=== PATIENT | female | born 1950 | race Asian ===

== ENCOUNTER 2016-08-13 11:39 | Inpatient (IN) | payer OTHER ==
--- NOTE | 2016-08-13 11:58 | PDOC ---
History of Present Illness - General History Source: Patient Exam Limitations: No Limitations - History of Present Illness Initial Comments: 08/13/16 13:23 The patient is a 66 year old female presenting with her daughter, with a significant past medical history of diabetes, CAD s/p defribillator, diverticulosis and HLD who presents to the emergency department after being sent by her PMD for admission. She states that she has not been feeling well for the past 2 weeks. She reports that she has abdominal pain, back pain, nausea , loss of appetite and chills. She describes her abdominal pain as constant, ranging from mild to moderate, without radiation or modifying factors. She rates it a 8/10 in severity. She describes her back pain as localized on the lower right side, mild in nature, without radiation or modifying factors. She states that her last colonoscopy was last year when she was diagnosed with diverticulosis. She notes that she has been having regular bowel movements but in smaller amounts due to minimal food intake. The patient denies chest pain, shortness of breath, headache and dizziness. Denies fever, vomit, diarrhea and constipation. Denies dysuria, frequency, urgency and hematuria. Allergies: None Past surgical history: , appendectomy, left arm surgery Social history: No alcohol, tobacco or drug use reported PMD - Dr. Sifuentes <Jose Cruz Ladd - Last Filed: 08/13/16 16:59> - General History Source: Patient Exam Limitations: No Limitations <Kelly Larry - Last Filed: 08/14/16 08:57> - General Chief Complaint: Pain Stated Complaint: PAIN, (PCP SENT FOR ADMIN) Time Seen by Provider: 08/13/16 11:57 Past History <Jose Cruz Ladd - Last Filed: 08/13/16 16:59> - Past Medical History Cardiac Disorders: Yes (cad) Diabetes: Yes (iddm) Hypercholesterolemia: Yes - Surgical History Appendectomy: Yes Cardiac Surgery: Yes (ppm/aicd) - Psycho/Social/Smoking Cessation Hx Anxiety: No Suicidal Ideation: No Smoking History: Never smoked Have you smoked in the past 12 months: No Information on smoking cessation initiated: No Hx Alcohol Use: No Drug/Substance Use Hx: No Substance Use Type: None <Kelly Larry - Last Filed: 08/14/16 08:57> - Past Medical History Allergies/Adverse Reactions: Allergies Allergy/AdvReac Type Severity Reaction Status Date / Time No Known Allergies Allergy Verified 08/13/16 11:48 Home Medications: Ambulatory Orders Aspirin [ASA -] 81 mg PO BID 08/13/16 Canagliflozin [Invokana] 100 mg PO DAILY 08/13/16 Carvedilol [Coreg -] 3.125 mg PO BID 08/13/16 Insulin Glargine,Hum.rec.anlog [Eyad Bueno] 60 unit SQ AM 08/13/16 Lisinopril [Prinivil] 20 mg PO DAILY 08/13/16 Metformin HCl [Metformin HCl ER] 1,000 mg PO BID 08/13/16 Simvastatin 20 mg PO HS 08/13/16 Review of Systems - Review of Systems Able to Perform ROS?: Yes Comments:: 08/13/16 13:23 GENERAL/CONSTITUTIONAL: No: fever, chills, weakness, loss of appetite. HEAD, EYES, EARS, NOSE AND THROAT: No: change in vision, ear pain, discharge, sore throat, throat swelling. CARDIOVASCULAR: No: chest pain, lightheadedness, palpitations, syncope RESPIRATORY: No: cough, shortness of breath, wheezing, hemoptysis, stridor. GASTROINTESTINAL: (+) Abdominal pain, nausea. No: vomiting, diarrhea, rectal bleeding, constipation. GENITOURINARY: No: dysuria, hematuria, frequency, urgency, flank pain. MUSCULOSKELET AL: (+) Back pain. No: neck pain, joint pain, muscle swelling or pain SKIN AND BREASTS: No: lesions, pallor, rash or easy bruising. NEUROLOGIC: No: headache, vertigo, paresthesias, weakness ENDOCRINE: No: unexplained weight gain or loss HEMATOLOGIC/LYMPHATIC: No: anemia, easy bleeding, swelling nodes <Jose Cruz Ladd - Last Filed: 08/13/16 16:59> *Physical Exam - Vital Signs Last Vital Signs Temp Pulse Resp BP Pulse Ox 97.6 F 86 18 151/78 100 08/13/16 11:49 08/13/16 11:49 08/13/16 11:49 08/13/16 11:49 08/13/16 11:49 - Physical Exam Comments: 08/13/16 13:23 GENERAL: (+) Obese. The patient is in no acute distress. HEAD: Normal with no signs of trauma. EYES: PERRLA, EOMI, sclera anicteric, conjunctiva clear. ENT: Ears normal, nares patent, oropharynx clear without exudates. Moist mucous membranes. NECK: Normal range of motion, supple without lymphadenopathy, JVD, or masses. LUNGS: Breath sounds equal, clear to auscultation bilaterally. No wheezes, and no crackles. HEART:Regular rate and rhythm, normal S1 and S2 without murmur, rub or gallop. ABDOMEN: (+) Left lower quadrant tenderness with voluntary guarding. Soft, normoactive bowel sounds. No rebound. EXTREMITIES: Normal range of motion, no edema. No clubbing or cyanosis. No erythema, or tenderness. NEUROLOGICAL: Cranial nerves II through XII grossly intact. Normal speech. No focal neurological deficits. MUSCULOSKELETAL: Back non-tender to palpation, no CVA tenderness SKIN: Warm, Dry, normal turgor, no rashes or lesions noted. <Jose Cruz Ladd - Last Filed: 08/13/16 16:59> - Vital Signs Last Vital Signs Temp Pulse Resp BP Pulse Ox 97.6 F 86 18 151/78 100 08/13/16 11:49 08/13/16 11:49 08/13/16 11:49 08/13/16 11:49 08/13/16 11:49 <Kelly Larry - Last Filed: 08/14/16 08:57> ED Treatment Course - LABORATORY CBC & Chemistry Diagram: 08/13/16 12:20 08/13/16 12:20 - RADIOLOGY Radiograph Interpretation: 08/13/16 17:00 CT abdomen and pelvis with contrast Reviewed by: Dr. Jose Bojorquez Impression: A few diverticula in the descending and sigmoid colon, without interval change. Mild mesenteric strangling aling the medial margin of the distal descending colon again seen without interval change. Differential diagnoses includes epiploic appendagitis and much less likely acute diverticulitis. No extravasation of air or abscess formation is identified. Mild fatty infiltration of the liver. Gallstones without CT evidence of acute cholecystitis. - Medications Given in the ED: ED Medications Discontinued Medications Generic Name Dose Route Start Last Admin Trade Name Freq PRN Reason Stop Dose Admin Ondansetron HCl 4 mg 08/13/16 11:59 08/13/16 12:48 Zofran Injection IVPUSH 08/13/16 12:00 4 mg ONCE ONE Administration <Jose Cruz Ladd - Last Filed: 08/13/16 16:59> - LABORATORY CBC & Chemistry Diagram: 08/14/16 07:03 08/13/16 12:20 <Kelly Larry - Last Filed: 08/14/16 08:57> Medical Decision Making - Medical Decision Making 08/13/16 11:57 A portion of this note was documented by scribe services under my direction. I have reviewed the details of the note, within reason, and agree with the documentation with the following case summary and management plan written by me. Nursing documentation reviewed and incorporated into medical decision making 66 yo F presenting with 2 weeks of abdominal pain which she states is 8/10 Decreased appetite No diarrhea 08/13/16 14:27 Laboratory Tests 08/13/16 08/13/16 08/13/16 12:20 12:20 12:33 WBC 7.6 Hgb 12.5 Hct 39.1 Plt Count 260 Neutrophils % 58.2 Lymphocytes % 31.0 Sodium 138 Potassium 4.6 Chloride 99 Carbon Dioxide 26 BUN 23 H Creatinine 0.8 Random Glucose 193 H Lipase 462 H Urine Blood 1+ H Urine Nitrite Negative Urine Bilirubin Negative Ur Leukocyte Esterase Trace H CT demonstrates mesenteric stranding, possible diverticulitis vs. epiploic appendigitis Pt ordered for pain medications Pt admitted to Dr Sifuentes on Med Surg Also ordered for Levaquin and Flagyl <Kelly Larry - Last Filed: 08/14/16 08:57> *DC/Admit/Observation/Transfer - Attestations Scribe Attestion: 08/13/16 12:49 Documentation prepared by Jose Cruz Ladd, acting as medical device assembler for Kelly Larry MD <Jose Cruz Ladd - Last Filed: 08/13/16 16:59> - Discharge Dispostion Admit: Yes <Kelly Larry - Last Filed: 08/14/16 08:57> Diagnosis at time of Disposition: Diverticulitis Qualifiers: Diverticulitis site: large intestine Diverticulitis bleeding: without bleeding Diverticulitis complication: without perforation or abscess Qualified Code(s): K57.32 - Diverticulitis of large intestine without perforation or abscess without bleeding - Discharge Dispostion Condition at time of disposition: Stable
[2016-08-13] MEDS ORDERED: ONDANSETRON 4 MG/2 ML VIAL IVPUSH ONE (11:59)
[2016-08-13] MEDS ORDERED: SODIUM CHLORIDE 1,000 ML IV STA (11:59)
[2016-08-13] MEDS ORDERED: ONDANSETRON 4 MG/2 ML VIAL ONE (12:39)
[2016-08-13 12:52] LABS: ALBUMIN 3.6 g/dl (3.4-5.0); AMYLASE 107 U/L (25-115); ANION GAP 13 (8-16); CALCIUM 10.1 mg/dL (8.5-10.1); CO2 26 mmol/L (21-32); COCKROFT - GAULT 89.1565; CREATININE 0.8 mg/dL (0.55-1.02); GLUCOSE,RANDOM 193 mg/dL (74-106); SGOT/AST 18 U/L (15-37); SGPT/ALT 22 U/L (12-78); TOT PROT 7.2 g/dl (6.4-8.2)
[2016-08-13 12:53] LABS: ALK PHOS 65 U/L (45-117); BILIRUBIN,TOTAL 0.4 mg/dL (0.2-1.0)
[2016-08-13 12:59] LABS: URINE APPEARANCE CLEAR; URINE BILIRUBIN NEGATIVE (NEGATIVE); URINE COLOR STRAW; URINE GLUCOSE (UA) 3+ (NEGATIVE); URINE KETONE NEGATIVE (NEGATIVE); URINE NITRITE NEGATIVE (NEGATIVE); URINE PROTEIN NEGATIVE (NEGATIVE); URINE UROBILINOGEN NEGATIVE E.U./dl (0.2-1.0)
[2016-08-13 13:00] LABS: URINE BLOOD 1+ (NEGATIVE); URINE LEUK ESTERASE TRACE (NEGATIVE)
[2016-08-13 13:09] LABS: URINE WBC 2 /hpf (3-5)
[2016-08-13 13:10] LABS: URINE RBC 1 /hpf (0-3)
[2016-08-13 13:16] LABS: BASOPHIL 0.8 % (0-2.0); EOSINOPHIL 2.2 % (0-4.5); MCH 25.1 pg (25.7-33.7); MCHC 31.8 g/dl (32.0-36.0); MEAN CELL VOLUME 78.9 fl (80-96); MEAN PLT VOLUME 8.7 fl (7.5-11.1); NEUTROPHILS 58.2 % (42.8-82.8); PLATELET COUNT 260 K/MM3 (134-434); RDW 16.5 % (11.6-15.6); WHITE BLOOD COUNT 7.6 K/mm3 (4.0-10.0)
[2016-08-13] MEDS ORDERED: LEVOFLOXACIN 500 MG IVPB 100 ML IVPB ONE ×2 (17:35→18:07)
[2016-08-13] MEDS ORDERED: METRONIDAZOLE 500 MG PREMIXED 100 ML IVPB ONE ×2 (17:35→18:07)
[2016-08-13] MEDS ORDERED: SODIUM CHLORIDE 1,000 ML IV SCH (17:45)
[2016-08-13] MEDS ORDERED: morphine CARPU-JECT 4 MG/1 ML DISP.SYRIN IVPUSH ONE (18:39)
[2016-08-13] MEDS ORDERED: METHOCARBAMOL 500 MG TABLET PO ONE (18:39)
[2016-08-13] MEDS ORDERED: METHOCARBAMOL 500 MG TABLET ONE (19:02)
[2016-08-13] MEDS ORDERED: morphine CARPU-JECT 4 MG/1 ML DISP.SYRIN ONE (19:02)
--- NOTE | 2016-08-13 19:15 | HP ---
Admitting History and Physical - Primary Care Physician PCP: Stanley Sifuentes - Admission Chief Complaint: ACUTE ABDOMINAL PAIN History of Present Illness: The patient is a 66 year old female presenting with her daughter, with a significant past medical history of diabetes, CAD s/p defribillator, diverticulosis and HLD who presents to the emergency department after being sent by her PMD for admission. She states that she has not been feeling well for the past 2 weeks. She reports that she has abdominal pain, back pain, nausea , loss of appetite and chills. She describes her abdominal pain as constant, ranging from mild to moderate, without radiation or modifying factors. She rates it a 8/10 in severity. She describes her back pain as localized on the lower right side, mild in nature, without radiation or modifying factors. She states that her last colonoscopy was last year when she was diagnosed with diverticulosis. She notes that she has been having regular bowel movements but in smaller amounts due to minimal food intake. The patient denies chest pain, shortness of breath, headache and dizziness. Denies fever, vomit, diarrhea and constipation. Denies dysuria, frequency, urgency and hematuria. History Source: Patient Limitations to Obtaining History: No Limitations - Past Medical History Cardiovascular: Yes: CAD Endocrine: Yes: Diabetes Mellitus - Smoking History Smoking history: Never smoked Have you smoked in the past 12 months: No - Alcohol/Substance Use Hx Alcohol Use: No Home Medications - Allergies Allergies/Adverse Reactions: Allergies Allergy/AdvReac Type Severity Reaction Status Date / Time No Known Allergies Allergy Verified 08/13/16 11:48 - Home Medications Home Medications: Ambulatory Orders Aspirin [ASA -] 81 mg PO BID 08/13/16 Canagliflozin [Invokana] 100 mg PO DAILY 08/13/16 Carvedilol [Coreg -] 3.125 mg PO BID 08/13/16 Insulin Glargine,Hum.rec.anlog [Eyad Solruizar] 60 unit SQ AM 08/13/16 Lisinopril [Prinivil] 20 mg PO DAILY 08/13/16 Metformin HCl [Metformin HCl ER] 1,000 mg PO BID 08/13/16 Simvastatin 20 mg PO HS 08/13/16 Review of Systems - Review of Systems Constitutional: reports: Lethargy, Weakness Eyes: reports: No Symptoms HENT: reports: No Symptoms Neck: reports: No Symptoms Cardiovascular: reports: No Symptoms Respiratory: reports: No Symptoms Gastrointestinal: reports: Abdominal Pain, Indigestion Genitourinary: reports: No Symptoms Musculoskeletal: reports: Joint Pain, Muscle Weakness Integumentary: reports: No Symptoms Neurological: reports: No Symptoms Endocrine: reports: No Symptoms Hematology/Lymphatic: reports: No Symptoms Physical Examination Vital Signs: Vital Signs Temperature 97.6 F 08/13/16 11:49 Pulse Rate 86 08/13/16 11:49 Respiratory Rate 18 08/13/16 11:49 Blood Pressure 151/78 08/13/16 11:49 O2 Sat by Pulse Oximetry (%) 100 08/13/16 11:49 Constitutional: Yes: Severe Distress Eyes: Yes: WNL HENT: Yes: WNL Neck: Yes: WNL Cardiovascular: Yes: WNL Respiratory: Yes: WNL Gastrointestinal: Yes: Tenderness, Tenderness, Epigastrium, Tenderness, Rebound ...Rectal Exam: Yes: WNL Renal/: Yes: WNL Breast(s): Yes: WNL Musculoskeletal: Yes: Back Pain, Muscle Pain Extremities: Yes: WNL Edema: No Peripheral Pulses WNL: Yes Integumentary: Yes: WNL Wound/Incision: Yes: Clean/Dry Neurological: Yes: WNL ...Motor Strength: LLE, RLE Psychiatric: Yes: Other Imaging - Results Cat Scan: Report Reviewed Problem List - Problems (1) Diverticulitis Code(s): K57.92 - DVTRCLI OF INTEST, PART UNSP, W/O PERF OR ABSCESS W/O BLEED Qualifiers: Diverticulitis site: large intestine Diverticulitis bleeding: without bleeding Diverticulitis complication: without perforation or abscess Qualified Code(s): K57.32 - Diverticulitis of large intestine without perforation or abscess without bleeding (2) Diabetes Code(s): E11.9 - TYPE 2 DIABETES MELLITUS WITHOUT COMPLICATIONS (3) ICD (implantable cardioverter-defibrillator) in place Code(s): Z95.810 - PRESENCE OF AUTOMATIC (IMPLANTABLE) CARDIAC DEFIBRILLATOR (4) Neuropathy in diabetes Code(s): E11.40 - TYPE 2 DIABETES MELLITUS WITH DIABETIC NEUROPATHY, UNSP (5) Acute abdominal pain Code(s): R10.9 - UNSPECIFIED ABDOMINAL PAIN Assessment/Plan NPO IVF IV ABX ESR/CRP ORDERED TREATED 1 MONTH AGO WITH LEVAQUIN, RESPONDED WELL GI AND SURGERY EVAL BGM CHECKS
[2016-08-13] MEDS ORDERED: ONDANSETRON 4 MG/2 ML VIAL IVPB PRN (19:17)
[2016-08-13] MEDS ORDERED: METRONIDAZOLE 500 MG PREMIXED 100 ML IVPB SCH (19:30)
[2016-08-13] MEDS: DEXTROSE 5%-NORMAL SALINE 1,000 ML IV SCH (20:30)
[2016-08-13 20:55] VITALS: BMI 33.3
[2016-08-13] MEDS: CARVEDILOL 3.125 MG TABLET (FP) PO SCH (22:15)
[2016-08-14] MEDS: morphine CARPU-JECT 4 MG/1 ML DISP.SYRIN IVPUSH PRN ×2 (01:57→08:28)
[2016-08-14] MEDS: METRONIDAZOLE 500 MG PREMIXED 100 ML IVPB SCH ×3 (02:28→17:13)
[2016-08-14] MEDS: DEXTROSE 5%-NORMAL SALINE 1,000 ML IV SCH (06:08)
[2016-08-14] MEDS ORDERED: PT OWN MED DRAWER 7, Y5N ONE (06:57)
[2016-08-14 08:08] LABS: MCH 25.1 pg (25.7-33.7); MCHC 31.6 g/dl (32.0-36.0); MEAN CELL VOLUME 79.4 fl (80-96); PLATELET COUNT 217 K/MM3 (134-434); RDW 16.6 % (11.6-15.6); WHITE BLOOD COUNT 6.2 K/mm3 (4.0-10.0)
[2016-08-14 08:59] LABS: ANION GAP 7 (8-16); CALCIUM 8.6 mg/dL (8.5-10.1); CO2 27 mmol/L (21-32); GLUCOSE,RANDOM 109 mg/dL (74-106)
[2016-08-14 09:04] LABS: ALK PHOS 46 U/L (45-117); BILIRUBIN,TOTAL 0.4 mg/dL (0.2-1.0); CHOLESTEROL 121 mg/dL (50-200); CREATININE 0.7 mg/dL (0.55-1.02); LDL CHOLESTEROL (ONLY SJRH) 67 mg/dL (5-100); SGOT/AST 18 U/L (15-37); SGPT/ALT 18 U/L (12-78); TOT PROT 5.9 g/dl (6.4-8.2)
--- NOTE | 2016-08-14 09:22 | CONSULT ---
<Eliot Perkins P - Last Filed: 08/14/16 09:29> - Consultation REQUESTING PROVIDER: MD Martha CONSULT REQUEST: We have been asked to surgically evaluate this patient for abd pain. PCP: Stanley Sifuentes HPI: Called to duy 66 yo female with PMHx noted below. Sent in by her PCP Dr. Sifuentes for further work-up of her recurrent abd pain x2 weeks. Patient states she last experienced this in May and her PCP treated her with antibiotics (can't remember which one). Pt states she has abd pain, nausea (no vomiting), loss of appetite and chills. States she is passing flatus. Regular bowel movements but small caliber due to decreased food intake. She had a colonoscopy last year and was diagnosed with diverticulosis. Denies CP, ROMEO, SOB, ADAMS, dizzy, weak, fever, diarrhea and constipation, dysuria , frequency, urgency, hematuria, hemorrhoids, melena or hematochazia. CT in ER --> diverticula in descending colon. Mild mesenteric stranding along medial margin of distal descending colon PMHx: DM, CAD diverticulosis and HLD PSHx: Csxn x2, defribillator, appendectomy Home Medications Aspirin [ASA -] 81 mg PO BID Canagliflozin [Invokana] 100 mg PO DAILY Carvedilol [Coreg -] 3.125 mg PO BID Insulin Glargine,Hum.rec.anlog [Toujeo Solostar] 60 unit SQ AM Lisinopril [Prinivil] 20 mg PO DAILY Metformin HCl [Metformin HCl ER] 1,000 mg PO BID Simvastatin 20 mg PO HS Allergies: NKDA ROS All systems reviewed and considered negative except for what's contained in HPI. PE: GENERAL: Awake, alert, and fully oriented, in no acute distress. HEAD: NC. AT. EYES: PERRL, sclera anicteric, conjunctiva clear. NECK: Normal ROM, supple without lymphadenopathy, JVD, or masses. LUNGS: CTA b/l anteriorly HEART: RRR ABD: Obese. Softly distended, NT, normoactive bowel sounds, no guarding, no rebound, no rigidity MUSCULOSKEL: No CVAT UE: 2+ pulses, warm, well-perfused. No cyanosis. Cap refill <2 seconds. No peripheral edema. LE: 2+ pulses, warm, well-perfused. No calf tenderness. No peripheral edema. Last Vital Signs Temp Pulse Resp BP Pulse Ox 98.0 F 74 20 138/71 96 08/14/16 06:00 08/14/16 06:00 08/14/16 06:00 08/14/16 06:00 08/13/16 21:04 CBC, BMP 08/14/16 07:03 08/14/16 07:03 Hepatic Panel Total Bilirubin 0.4 mg/dL (0.2-1.0) 08/14/16 07:03 AST 18 U/L (15-37) 08/14/16 07:03 ALT 18 U/L (12-78) 08/14/16 07:03 Alkaline Phosphatase 46 U/L (45-117) D 08/14/16 07:03 Albumin 3.0 g/dl (3.4-5.0) L 08/14/16 07:03 Urine Results Urine Color Straw 08/13/16 12:33 Urine Appearance Clear 08/13/16 12:33 Urine pH 5.0 (5.0-8.0) 08/13/16 12:33 Ur Specific [place] <= 1.005 (1.005-1.025) 08/13/16 12:33 Urine Protein Negative (NEGATIVE) 08/13/16 12:33 Urine Glucose (UA) 3+ (NEGATIVE) H 08/13/16 12:33 Urine Ketones Negative (NEGATIVE) 08/13/16 12:33 Urine Blood 1+ (NEGATIVE) H 08/13/16 12:33 Urine Nitrite Negative (NEGATIVE) 08/13/16 12:33 Urine Bilirubin Negative (NEGATIVE) 08/13/16 12:33 Ur Leukocyte Esterase Trace (NEGATIVE) H 08/13/16 12:33 Urine RBC 1 /hpf (0-3) 08/13/16 12:33 Urine WBC 2 /hpf (3-5) 08/13/16 12:33 Ur Epithelial Cells Rare /hpf (FEW) 08/13/16 12:33 Problem List - Problems (1) Epiploic appendagitis Assessment/Plan: 66 yo female admitted with abd pain x2 weeks. CT identified diverticula in descending colon. Mild mesenteric stranding along medial margin of distal descending colon. Inflammed epiploic appendage. Currently, patient is without pain. Non-toxic appearing. Passing flatus. OOB and ambulate Pain management PRN GI / DVT ppx Start clears and advance as tolerated No surgical intervention COnt medical management Above plan discussed with Dr. Thomas and agrees Code(s): K52.9 - NONINFECTIVE GASTROENTERITIS AND COLITIS, UNSPECIFIED (2) Diverticulitis Code(s): K57.92 - DVTRCLI OF INTEST, PART UNSP, W/O PERF OR ABSCESS W/O BLEED Qualifiers: Diverticulitis site: large intestine Diverticulitis bleeding: without bleeding Diverticulitis complication: without perforation or abscess Qualified Code(s): K57.32 - Diverticulitis of large intestine without perforation or abscess without bleeding Visit type - Case Type Case Type: ED Admission - Emergency Emergency Visit: Yes ED Registration Date: 08/13/16 Care time: The patient presented to the Emergency Department on the above date and was hospitalized for further evaluation of their emergent condition. - New patient This patient is new to me today: Yes Date on this admission: 08/14/16 <Dennis Thomas - Last Filed: 08/14/16 14:14> - Consultation REQUESTING PROVIDER: CONSULT REQUEST: We have been asked to surgically evaluate this patient for ( specify). PCP:Stanley Sifuentes HISTORY OF PRESENT ILLNESS: PMHx: PSHx: Home Medications Medication Instructions Recorded Aspirin [ASA -] 81 mg PO BID 08/13/16 Canagliflozin [Invokana] 100 mg PO DAILY 08/13/16 Carvedilol [Coreg -] 3.125 mg PO BID 08/13/16 Insulin Glargine,Hum.rec.anlog 60 unit SQ AM 08/13/16 [Eyad Bueno] Lisinopril [Prinivil] 20 mg PO DAILY 08/13/16 Metformin HCl [Metformin HCl ER] 1,000 mg PO BID 08/13/16 Simvastatin 20 mg PO HS 08/13/16 Allergies Allergy/AdvReac Type Severity Reaction Status Date / Time No Known Allergies Allergy Verified 08/13/16 11:48 REVIEW OF SYSTEMS: CONSTITUTIONAL: Absent: fever, chills, diaphoresis, generalized weakness, malaise, loss of appetite, weight change CARDIOVASCULAR: Absent: chest pain, syncope, palpitations, irregular heart rate, lightheadedness , peripheral edema RESPIRATORY: Absent: cough, shortness of breath, dyspnea with exertion, wheezing, stridor, hemoptysis GASTROINTESTINAL: Absent: abdominal pain, abdominal distension, nausea, vomiting, diarrhea, constipation, melena, hematochezia GENITOURINARY: Absent: dysuria, frequency, urgency, hesitancy, hematuria, flank pain, genital pain MUSCULOSKELETAL: Absent: myalgia, arthralgia, joint swelling, back pain, neck pain SKIN: Absent: rash, itching, pallor HEMATOLOGIC/IMMUNOLOGIC: Absent: easy bleeding, easy bruising, lymphadenopathy NEUROLOGIC: Absent: headache, focal weakness, paresthesias, dizziness, unsteady gait, seizure, mental status changes, bladder or bowel incontinence PSYCHIATRIC: Absent: anxiety, depression, suicidal or homicidal ideation, hallucinations. PHYSICAL EXAM: GENERAL: Awake, alert, and fully oriented, in no acute distress. HEAD: Normal with no signs of trauma. EYES: PERRL, sclera anicteric, conjunctiva clear. NECK: Normal ROM, supple without lymphadenopathy, JVD, or masses. LUNGS: Clear to auscultation bilat anteriorly. No wheezes, and no crackles. No accessory muscle use. HEART: Regular rate and rhythm. No murmurs ABDOMEN: Soft, nontender, not distended, normoactive bowel sounds, no guarding, no rebound, no masses. No organomegaly. MUSCULOSKELETAL: Normal ROM at all joints. No bony deformities or tenderness. No CVA tenderness. UPPER EXTREMITIES: 2+ pulses, warm, well-perfused. No cyanosis. Cap refill <2 seconds. No peripheral edema. LOWER EXTREMITIES: 2+ pulses, warm, well-perfused. No calf tenderness. No peripheral edema. NEUROLOGICAL: Normal speech, gait not observed. PSYCH: Cooperative. Good eye contact. Appropriate mood and affect. SKIN: Warm, dry, normal turgor, no rashes or lesions noted. Vital Signs Temperature 97.9 F 08/14/16 13:52 Pulse Rate 72 08/14/16 13:52 Respiratory Rate 20 08/14/16 13:52 Blood Pressure 122/58 08/14/16 09:00 O2 Sat by Pulse Oximetry (%) 96 08/13/16 21:04 Lab Results WBC 6.2 K/mm3 (4.0-10.0) 08/14/16 07:03 RBC 4.36 M/mm3 (3.60-5.2) 08/14/16 07:03 Hgb 10.9 GM/dL (10.7-15.3) D 08/14/16 07:03 Hct 34.6 % (32.4-45.2) 08/14/16 07:03 MCV 79.4 fl (80-96) L 08/14/16 07:03 MCHC 31.6 g/dl (32.0-36.0) L 08/14/16 07:03 RDW 16.6 % (11.6-15.6) H 08/14/16 07:03 Plt Count 217 K/MM3 (134-434) 08/14/16 07:03 Sodium 138 mmol/L (136-145) 08/14/16 07:03 Potassium 5.0 mmol/L (3.5-5.1) 08/14/16 07:03 Chloride 104 mmol/L (98-107) 08/14/16 07:03 Carbon Dioxide 27 mmol/L (21-32) 08/14/16 07:03 Anion Gap 7 (8-16) L 08/14/16 07:03 BUN 12 mg/dL (7-18) D 08/14/16 07:03 Creatinine 0.7 mg/dL (0.55-1.02) 08/14/16 07:03 Random Glucose 109 mg/dL (74-106) H D 08/14/16 07:03 Calcium 8.6 mg/dL (8.5-10.1) 08/14/16 07:03 Agree Recurrent abdominal pain Treated recently with antibiotics for suspected colitis/diverticulitis Presented with right sided abdominal pain- resolved on antibiotics Now with no pain Tolerating diet Abd soft, NT, ND CT- stranding of distal descending colon, no free air Possible recurrent chronic diverticulitis vs ischemic colitis CTA to evaluate for ischemic colitis Wants CTA as an outpatient as she just had a CT A/P Will need colorectal surgery follow up If remians pain free, can advance diet as tolerated
--- NOTE | 2016-08-14 09:59 | PN ---
Progress Note, Physician Chief Complaint: AWAKE DAUGHTER BEDSIDE STILL HAS DISCOMFORT - Current Medication List Current Medications: Active Medications Carvedilol (Coreg -) 3.125 mg PO BID [facility] Last Admin: 08/13/16 22:15 Dose: 3.125 mg Dextrose/Sodium Chloride (D5-Ns -) 1,000 mls @ 83 mls/hr IV ASDIR GIDEON Last Admin: 08/14/16 06:08 Dose: 83 mls/hr Levofloxacin (Levaquin 500 Mg Premixed Ivpb -) 100 mls @ 100 mls/hr IVPB DAILY [facility] Metronidazole (Flagyl 500mg Premixed Ivpb -) 100 mls @ 100 mls/hr IVPB Q8H-IV [facility] Last Admin: 08/14/16 02:28 Dose: 100 mls/hr Lisinopril (Prinivil) 20 mg PO DAILY [facility] Morphine Sulfate (Morphine Injection -) 4 mg IVPUSH Q6H PRN PRN Reason: PAIN Last Admin: 08/14/16 08:28 Dose: 4 mg Ondansetron HCl (Zofran Injection) 4 mg IVPB Q6H PRN PRN Reason: NAUSEA - Objective Vital Signs: Vital Signs Temperature 98.0 F 08/14/16 06:00 Pulse Rate 74 08/14/16 06:00 Respiratory Rate 20 08/14/16 06:00 Blood Pressure 138/71 08/14/16 06:00 O2 Sat by Pulse Oximetry (%) 96 08/13/16 21:04 Constitutional: Yes: Mild Distress Eyes: Yes: WNL HENT: Yes: WNL Neck: Yes: WNL Cardiovascular: Yes: WNL Respiratory: Yes: WNL Gastrointestinal: Yes: Tenderness, Rebound Genitourinary: Yes: WNL Musculoskeletal: Yes: WNL Extremities: Yes: WNL Edema: No Peripheral Pulses WNL: Yes Integumentary: Yes: WNL Wound/Incision: Yes: Clean/Dry Neurological: Yes: WNL ...Motor Strength: WNL Psychiatric: Yes: WNL Labs: CBC, BMP 08/14/16 07:03 08/14/16 07:03 Problem List - Problems (1) Diverticulitis Code(s): K57.92 - DVTRCLI OF INTEST, PART UNSP, W/O PERF OR ABSCESS W/O BLEED Qualifiers: Diverticulitis site: large intestine Diverticulitis bleeding: without bleeding Diverticulitis complication: without perforation or abscess Qualified Code(s): K57.32 - Diverticulitis of large intestine without perforation or abscess without bleeding (2) Diabetes Code(s): E11.9 - TYPE 2 DIABETES MELLITUS WITHOUT COMPLICATIONS (3) ICD (implantable cardioverter-defibrillator) in place Code(s): Z95.810 - PRESENCE OF AUTOMATIC (IMPLANTABLE) CARDIAC DEFIBRILLATOR (4) Neuropathy in diabetes Code(s): E11.40 - TYPE 2 DIABETES MELLITUS WITH DIABETIC NEUROPATHY, UNSP (5) Acute abdominal pain Code(s): R10.9 - UNSPECIFIED ABDOMINAL PAIN (6) Epiploic appendagitis Code(s): K52.9 - NONINFECTIVE GASTROENTERITIS AND COLITIS, UNSPECIFIED Assessment/Plan IV ABX ADVANCE DIET TO CLEAR GI CONSULT PENDING SURGERY EVAL APPRECIATED OOB TO CHAIR SSI
[2016-08-14] MEDS ORDERED: LEVOFLOXACIN 500 MG IVPB 100 ML IVPB SCH (10:00)
[2016-08-14] MEDS: LISINOPRIL 20 MG TABLET (FP) PO SCH (10:19)
[2016-08-14] MEDS: CARVEDILOL 3.125 MG TABLET (FP) PO SCH ×2 (10:19→21:28)
[2016-08-14] MEDS ORDERED: INSULIN SLIDING SCALE (NOVOLOG) 1 VIAL SQ SCH (11:00)
[2016-08-14] MEDS: INSULIN SLIDING SCALE (NOVOLOG) 1 VIAL SQ SCH ×3 (12:15→21:24)
--- NOTE | 2016-08-14 13:24 | EKG ---
Test Reason : Blood Pressure : / mmHG Vent. Rate : 073 BPM Atrial Rate : 073 BPM P-R Int : 144 ms QRS Dur : 154 ms QT Int : 458 ms P-R-T Axes : -04 217 073 degrees QTc Int : 504 ms Atrial-sensed ventricular-paced rhythm Biventricular pacemaker detected ABNORMAL ECG NO PREVIOUS ECGS AVAILABLE Confirmed by GEOVANNY TURK MD ([id number]) on 08/14/2016 1:24:11 PM Referred By: Confirmed By:GEOVANNY TURK MD
[2016-08-14 17:04] LABS: ERYTHROCYTE SEDIMENTATION RATE 16 mm/hr (0-30)
--- NOTE | 2016-08-14 19:04 | CON.GI ---
Consult Consult Specialty:: GI Referred by:: Dr Sifuentes - History of Present Illness History of Present Illness: The patient is a 66 year old female presenting with her daughter, with a significant past medical history of diabetes, CAD s/p defribillator, diverticulosis and HLD who presents to the emergency department after being sent by her PMD for admission. She states that she has not been feeling well for the past 2 weeks. She reports that she has abdominal pain, back pain, nausea , loss of appetite and chills. She describes her abdominal pain as constant, ranging from mild to moderate, without radiation or modifying factors. She rates it a 8/10 in severity. She describes her back pain as localized on the lower right side, mild in nature, without radiation or modifying factors. She states that her last colonoscopy was last year when she was diagnosed with diverticulosis. She notes that she has been having regular bowel movements but in smaller amounts due to minimal food intake. The patient denies chest pain, shortness of breath, headache and dizziness. Denies fever, vomit, diarrhea and constipation. Denies dysuria, frequency, urgency and hematuria. This evening the abdominal pain is minimal.continue to be constipated. No nausea, no vomiting, tolerating liquid diet. - History Source History Provided By: Patient - Past Medical History Cardio/Vascular: Yes: CAD ...: No Endocrine: Yes: Diabetes Mellitus - Alcohol/Substance Use Hx Alcohol Use: No - Smoking History Smoking history: Never smoked Have you smoked in the past 12 months: No Home Medications - Allergies Allergies/Adverse Reactions: Allergies Allergy/AdvReac Type Severity Reaction Status Date / Time No Known Allergies Allergy Verified 08/13/16 11:48 - Home Medications Home Medications: Ambulatory Orders Aspirin [ASA -] 81 mg PO BID 08/13/16 Canagliflozin [Invokana] 100 mg PO DAILY 08/13/16 Carvedilol [Coreg -] 3.125 mg PO BID 08/13/16 Insulin Glargine,Hum.rec.anlog [Eyad Bueno] 60 unit SQ AM 08/13/16 Lisinopril [Prinivil] 20 mg PO DAILY 08/13/16 Metformin HCl [Metformin HCl ER] 1,000 mg PO BID 08/13/16 Simvastatin 20 mg PO HS 08/13/16 Physical Exam-GI Vital Signs: Vital Signs Temperature 97.9 F 08/14/16 13:52 Pulse Rate 72 08/14/16 13:52 Respiratory Rate 20 08/14/16 13:52 Blood Pressure 122/58 08/14/16 09:00 O2 Sat by Pulse Oximetry (%) 96 08/13/16 21:04 Constitutional: Yes: Obese Eyes: Yes: Conjunctiva Clear HENT: Yes: Atraumatic Neck: Yes: Supple Cardiovascular: Yes: Regular Rate and Rhythm. No: JVD Respiratory: Yes: CTA Bilaterally ...Palpate: Yes: Soft. No: Firm/Rigid, Guarding, Hepatomegaly, Mass, Pulsatile Mass, Splenomegaly, Tenderness, Tenderness, Epigastium Labs: CBC, BMP 08/14/16 07:03 08/14/16 07:03 Problem List - Problems (1) Diverticulitis Assessment/Plan: uncomplicated diverticulitis R> advance diet continue antibiotics for 10 days made aware to follow-up low fiber lactose free Miralax 34 grams daily Code(s): K57.92 - DVTRCLI OF INTEST, PART UNSP, W/O PERF OR ABSCESS W/O BLEED Qualifiers: Diverticulitis site: large intestine Diverticulitis bleeding: without bleeding Diverticulitis complication: without perforation or abscess Qualified Code(s): K57.32 - Diverticulitis of large intestine without perforation or abscess without bleeding
[2016-08-14] MEDS ORDERED: POLYETHYLENE GLYCOL 3350 119 GM BTL PO ONE ×2 (19:36)
[2016-08-15] MEDS: METRONIDAZOLE 500 MG PREMIXED 100 ML IVPB SCH (02:13)
[2016-08-15 06:00] VITALS: TEMP 98
[2016-08-15] MEDS: INSULIN SLIDING SCALE (NOVOLOG) 1 VIAL SQ SCH (06:16)
--- NOTE | 2016-08-15 09:10 | PN ---
[id number] states abdominal pain is completely gone. She is tolerating her diet, urinating without issue and passing flatus. She denies nausea, vomiting, fever, chills. Last Vital Signs Temp Pulse Resp BP Pulse Ox 98.0 F 71 20 119/67 97 08/15/16 05:58 08/15/16 05:58 08/15/16 05:58 08/15/16 05:58 08/14/16 20:03 Exam: Gen: NAD, pleasant and cooperative Abd: soft, obese, nontender A/P Abdominal pain resolved Continue diet as tolerated F/u outpt for CTA to evaluate for ischemic colitis, colorectal surgery follow up <Lou Leon - Last Filed: 08/15/16 09:17> - Note Progress Note: Agree No pain On diet No surgery needed at this time CTA as an outpatient <Dennis Thomas - Last Filed: 08/15/16 11:07>
[2016-08-15] MEDS ORDERED: CYCLOBENZAPRINE HCL 10 MG TABLET (FP) PO PRN (09:51)
--- NOTE | 2016-08-15 09:55 | DS ---
Physical Examination Vital Signs: Vital Signs Temperature 98.0 F 08/15/16 05:58 Pulse Rate 71 08/15/16 05:58 Respiratory Rate 20 08/15/16 05:58 Blood Pressure 119/67 08/15/16 05:58 O2 Sat by Pulse Oximetry (%) 97 08/14/16 20:03 Constitutional: Yes: Mild Distress Eyes: Yes: WNL HENT: Yes: WNL Neck: Yes: WNL Cardiovascular: Yes: WNL Respiratory: Yes: WNL Gastrointestinal: Yes: Tenderness Musculoskeletal: Yes: Back Pain Extremities: Yes: WNL Edema: No Peripheral Pulses WNL: Yes Integumentary: Yes: WNL Wound/Incision: Yes: Clean/Dry Neurological: Yes: WNL ...Motor Strength: WNL Psychiatric: Yes: WNL Labs: CBC, BMP 08/14/16 07:03 08/14/16 07:03 Discharge Summary Reason For Visit: DIVERTICULITIS OF INTESTINE Current Active Problems Acute abdominal pain (Acute) Diabetes (Acute) Diverticulitis (Acute) Epiploic appendagitis (Acute) ICD (implantable cardioverter-defibrillator) in place (Acute) Neuropathy in diabetes (Acute) Procedures: Principal: CT SCAN ABD Other Procedures: LABS/XRAYS Hospital Course: ACUTE DIVERTICULITIS AND APPENGITIS, TREATED IV ABX, NPO, IVF, WILL DC HOME ON PO ABX FOR 10 DAYS AND FOLLOW UP WITH ME IN 1 WEEK. Condition: Improved - Instructions Diet, Activity, Other Instructions: ADA LIQUID DIET Disposition: VNS/HOME HEALTH CARE - Home Medications Comprehensive Discharge Medication List: Ambulatory Orders Aspirin [ASA -] 81 mg PO BID 08/13/16 Canagliflozin [Invokana] 100 mg PO DAILY 08/13/16 Carvedilol [Coreg -] 3.125 mg PO BID 08/13/16 Insulin Glargine,Hum.rec.anlog [Tochristophero Solostar] 60 unit SQ AM 08/13/16 Lisinopril [Prinivil] 20 mg PO DAILY 08/13/16 Metformin HCl [Metformin HCl ER] 1,000 mg PO BID 08/13/16 Simvastatin 20 mg PO HS 08/13/16
[2016-08-15] MEDS ORDERED: LEVOFLOXACIN 500 MG TABLET (FP) PO SCH (10:00)
[2016-08-15] MEDS: CARVEDILOL 3.125 MG TABLET (FP) PO SCH (10:29)
[2016-08-15] MEDS: LISINOPRIL 20 MG TABLET (FP) PO SCH (10:30)
[2016-08-15 11:17] VITALS: BP 107/52; PULSE 76
[2016-08-15] MEDS ORDERED: metroNIDAZOLE 250 MG TABLET PO SCH (14:00)
== END 2016-08-15 11:10 | disposition home health service (06) | DRG 394 ==
LOC: JER 11:39 → JERBED 17:37 → J6S 20:41
PROVIDERS: ADMIT Family Medicine; ATTEND Family Medicine
DX: K63.89 Other specified diseases of intestine (principal); K57.32 Diverticulitis of large intestine without perforation or abscess without bleeding; Q43.8 Other specified congenital malformations of intestine; K57.30 Diverticulosis of large intestine without perforation or abscess without bleeding; K52.9 Noninfective gastroenteritis and colitis, unspecified; E11.40 Type 2 diabetes mellitus with diabetic neuropathy, unspecified; Z79.4 Long term (current) use of insulin; I25.10 Atherosclerotic heart disease of native coronary artery without angina pectoris; E78.00 Pure hypercholesterolemia, unspecified; Z95.810 Presence of automatic (implantable) cardiac defibrillator
CPT/HCPCS: 36415; 71010-TC; 74177-TC; 80053; 80061; 81003; 81015; 82150; 83036; 83690; 83721; 85025; 85027; 85651; 86140; 87086; 93005; 93010; 99283-25; Q9967

== ENCOUNTER 2016-08-21 15:21 | Emergency (ER) | payer OTHER ==
[2016-08-21 15:27] VITALS: BP 124/69; PULSE 90; TEMP 98; BMI 31.7
--- NOTE | 2016-08-21 16:11 | PDOC ---
History of Present Illness - General History Source: Patient Exam Limitations: No Limitations - History of Present Illness Initial Comments: 08/21/16 16:50 The patient is a 66-year-old woman with a significant past medical history of hypertension, hypercholesterolemia, coronary artery disease status post permanent pacemaker placement who was recently admitted to our facility for diverticulitis, discharged PO antibiotics (Levaquin and Flagyl) on 08/15/2016, who presents to the emergency department via walk-in for further evaluation of persistent nausea for the past few days. Patient states that since discharge, she has been persistently nauseous with associated vomiting (non-bloody/non- bilious) and unable to tolerate PO. She also reports she has difficulty urinating. No fevers, chills, abdominal pain, diarrhea, constipation, dysuria, urinary frequency/hesitancy, chest pain, lightheadedness, dizziness, palpitations, headaches, visual changes. Allergies: None Known Past Surgical History: Permanent Pacemaker Placement. Appendectomy. Social History: No tobacco, EtOH and recreational drug use. Primary Care Physician:Dr. Stanley Sifuentes <Sarita Blue - Last Filed: 08/21/16 19:07> - General History Source: Patient Exam Limitations: No Limitations <Kelly Larry - Last Filed: 08/22/16 08:58> - General Chief Complaint: Nausea Stated Complaint: WEAKNESS, LT ANKLE PAIN Past History <Sarita Blue - Last Filed: 08/21/16 19:07> - Past Medical History Cardiac Disorders: Yes (cad) Diabetes: Yes (iddm) Hypercholesterolemia: Yes - Surgical History Appendectomy: Yes Cardiac Surgery: Yes (ppm/aicd) - Psycho/Social/Smoking Cessation Hx Anxiety: No Suicidal Ideation: No Smoking History: Never smoked Have you smoked in the past 12 months: No Hx Alcohol Use: No Drug/Substance Use Hx: No Substance Use Type: None Hx Substance Use Treatment: No <Kelly Larry - Last Filed: 08/22/16 08:58> - Past Medical History Allergies/Adverse Reactions: Allergies Allergy/AdvReac Type Severity Reaction Status Date / Time No Known Allergies Allergy Verified 08/21/16 15:27 Home Medications: Ambulatory Orders Aspirin [ASA -] 81 mg PO BID 08/13/16 Canagliflozin [Invokana] 100 mg PO DAILY 08/13/16 Carvedilol [Coreg -] 3.125 mg PO BID 08/13/16 Insulin Glargine,Hum.rec.anlog [Eyad Bueno] 60 unit SQ AM 08/13/16 Lisinopril [Prinivil] 20 mg PO DAILY 08/13/16 Metformin HCl [Metformin HCl ER] 1,000 mg PO BID 08/13/16 Simvastatin 20 mg PO HS 08/13/16 Levofloxacin [Levaquin -] 500 mg PO DAILY #10 tablet 08/15/16 Metronidazole [Flagyl -] 500 mg PO TID #30 tablet 08/15/16 Furosemide [Lasix] 40 mg PO DAILY 08/21/16 Review of Systems - Review of Systems Able to Perform ROS?: Yes Comments:: 08/21/16 16:50 GENERAL/CONSTITUTIONAL: No: fever, chills, weakness, loss of appetite. HEAD, EYES, EARS, NOSE AND THROAT: No: change in vision, ear pain, discharge, sore throat, throat swelling. CARDIOVASCULAR: No: chest pain, lightheadedness, palpitations, syncope RESPIRATORY: No: cough, shortness of breath, wheezing, hemoptysis, stridor. GASTROINTESTINAL: Yes: Nausea. Vomiting. No: abdominal cramping, diarrhea, rectal bleeding, constipation. GENITOURINARY: Yes: Decreased urinary output. No: dysuria, hematuria, frequency , flank pain. MUSCULOSKELET AL: No: back pain, neck pain, joint pain, muscle swelling or pain SKIN AND BREASTS: No: lesions, pallor, rash or easy bruising. NEUROLOGIC: No: headache, vertigo, paresthesias, weakness ENDOCRINE: No: unexplained weight gain or loss HEMATOLOGIC/LYMPHATIC: No: anemia, easy bleeding, swelling nodes <Sarita Blue - Last Filed: 08/21/16 19:07> *Physical Exam - Vital Signs Last Vital Signs Temp Pulse Resp BP Pulse Ox 98.0 F 90 20 124/69 97 08/21/16 15:24 08/21/16 15:24 08/21/16 15:24 08/21/16 15:24 08/21/16 15:24 - Physical Exam Comments: 08/21/16 16:50 GENERAL: Awake. Alert. The patient is in no acute distress. HEAD: Normal with no signs of trauma. EYES: PERRLA, EOMI, sclera anicteric, conjunctiva clear. ENT: Ears normal, nares patent, oropharynx clear without exudates. Moist mucous membranes. NECK: Normal range of motion, supple without lymphadenopathy, JVD, or masses. LUNGS: Breath sounds equal, clear to auscultation bilaterally. No wheezes, and no crackles. HEART:Regular rate and rhythm, normal S1 and S2 without murmur, rub or gallop. ABDOMEN: Soft, there is some tenderness to the mid-epigastric region. Normoactive bowel sounds. No guarding, no rebound. EXTREMITIES: Tenderness to palpation to the medial aspect of the left foot with mild swelling. Pulses are equal. Normal range of motion. No clubbing or cyanosis. No erythema. NEUROLOGICAL: Cranial nerves II through XII grossly intact. Normal speech. No focal neurological deficits. MUSCULOSKELETAL: Back non-tender to palpation, no CVA tenderness SKIN: Warm, Dry, normal turgor, no rashes or lesions noted. <Sarita Blue - Last Filed: 08/21/16 19:07> - Vital Signs Last Vital Signs Temp Pulse Resp BP Pulse Ox 98.0 F 90 20 124/69 97 08/21/16 15:24 08/21/16 15:24 08/21/16 15:24 08/21/16 15:24 08/21/16 15:24 <Kelly Larry - Last Filed: 08/22/16 08:58> Heart Score/ECG Review #1 ECG reviewed & interpreted by me at: 18:42 08/21/16 18:42 Atrial sensed, ventricular paced at 84bpm Intervals abn - pr: 142ms, QRS:152ms (prolonged), QTc: 531ms (prolonged) No st elevations or depressions <Kelly Larry - Last Filed: 08/22/16 08:58> ED Treatment Course - LABORATORY CBC & Chemistry Diagram: 08/21/16 17:50 08/21/16 17:50 <Sarita Blue - Last Filed: 08/21/16 19:07> - LABORATORY CBC & Chemistry Diagram: 08/21/16 17:50 08/21/16 19:40 <Kelly Larry - Last Filed: 08/22/16 08:58> Medical Decision Making - Medical Decision Making 08/21/16 16:10 A portion of this note was documented by scribe services under my direction. I have reviewed the details of the note, within reason, and agree with the documentation with the following case summary and management plan written by me. Nursing documentation reviewed and incorporated into medical decision making This is a 66 yo F presenting to the ER with a complaint of nausea and inability to tolerate po today no fevers or chills no abdominal pain Pt is constipated Was recently admitted for diverticulitis currently is on flagyl and cipro she also has ankle pain and swelling s/p inversion injury On examination no abd tenderness pt is ambulatory with medial malleolar tenderness Will do basic labs will hydrate will give Zofran will re assess Laboratory Tests 08/21/16 17:50 WBC 8.3 D Hgb 11.8 Hct 36.6 Plt Count 266 D Pt signed out to Dr pollock pending xray and cmp <Kelly Larry - Last Filed: 08/22/16 08:58> *DC/Admit/Observation/Transfer - Attestations Scribe Attestion: 08/21/16 16:50 Documentation prepared by Sarita Blue, acting as medical office scheduler for Kelly Larry MD. <Sarita Blue - Last Filed: 08/21/16 19:07> <Kelly Larry - Last Filed: 08/22/16 08:58> Diagnosis at time of Disposition: Acute abdominal pain, Left ankle pain - Discharge Dispostion Disposition: HOME - Referrals Referrals: Stanley Sifuentes MD [Primary Care Provider] - - Patient Instructions Printed Discharge Instructions: DI for Abdominal Pain-Adult Additional Instructions: Please continue all medications as prescribed already. Return if any problems.
[2016-08-21] MEDS ORDERED: SODIUM CHLORIDE 1,000 ML IV STA (16:56)
[2016-08-21] MEDS ORDERED: ONDANSETRON 4 MG/2 ML VIAL IVPUSH ONE (16:56)
[2016-08-21] MEDS ORDERED: ONDANSETRON 4 MG/2 ML VIAL ONE (17:57)
[2016-08-21 17:59] LABS: BASOPHIL 0.9 % (0-2.0); EOSINOPHIL 1.1 % (0-4.5); MCHC 32.1 g/dl (32.0-36.0); MEAN CELL VOLUME 77.9 fl (80-96); MEAN PLT VOLUME 8.2 fl (7.5-11.1); NEUTROPHILS 67.3 % (42.8-82.8); PLATELET COUNT 266 K/MM3 (134-434); RDW 17.2 % (11.6-15.6); WHITE BLOOD COUNT 8.3 K/mm3 (4.0-10.0)
[2016-08-21] MEDS ORDERED: HYDROmorphone HCL CARPU-JECT 1 MG/1 ML DISP.SYRIN IVPB ONE (18:04)
[2016-08-21 20:26] LABS: ALBUMIN 3.3 g/dl (3.4-5.0); BILIRUBIN,TOTAL 0.4 mg/dL (0.2-1.0); CALCIUM 8.7 mg/dL (8.5-10.1); COCKROFT - GAULT 71.3235; TOT PROT 6.2 g/dl (6.4-8.2)
--- NOTE | 2016-08-21 21:15 | PDOC ---
*Physical Exam - Vital Signs Last Vital Signs Temp Pulse Resp BP Pulse Ox 98.0 F 90 20 124/69 97 08/21/16 15:24 08/21/16 15:24 08/21/16 15:24 08/21/16 15:24 08/21/16 15:24 ED Treatment Course - LABORATORY CBC & Chemistry Diagram: 08/21/16 17:50 08/21/16 19:40 - ADDITIONAL ORDERS Additional order review: Laboratory Results 08/21/16 08/21/16 08/21/16 19:40 17:50 17:50 Sodium 138 Cancelled Potassium 4.1 Cancelled Chloride 100 Cancelled Carbon Dioxide 29 Cancelled Anion Gap 9 Cancelled BUN 14 Cancelled Creatinine 1.0 D Cancelled Creat Clearance w eGFR 55.14 Cancelled Random Glucose 130 H Cancelled Calcium 8.7 Cancelled Total Bilirubin 0.4 Cancelled AST 28 D Cancelled ALT 32 D Cancelled Alkaline Phosphatase 61 D Cancelled Creatine Kinase Cancelled Troponin I Cancelled Total Protein 6.2 L Cancelled Albumin 3.3 L Cancelled Total Amylase 60 D Cancelled Lipase 275 Cancelled 08/21/16 17:50 RBC 4.70 MCV 77.9 L MCHC 32.1 RDW 17.2 H MPV 8.2 Neutrophils % 67.3 Lymphocytes % 21.1 D Monocytes % 9.6 Eosinophils % 1.1 Basophils % 0.9 - Medications Given in the ED: ED Medications Discontinued Medications Generic Name Dose Route Start Last Admin Trade Name Freq PRN Reason Stop Dose Admin Hydromorphone HCl 0.5 mg 08/21/16 18:04 08/21/16 18:29 Dilaudid Injection - IVPB 08/21/16 18:05 Not Given NOW ONE Sodium Chloride 1,000 mls @ 1,000 mls/hr 08/21/16 16:56 08/21/16 18:04 Normal Saline - IV 08/21/16 17:55 1,000 mls/hr ASDIR STA Administration Ondansetron HCl 4 mg 08/21/16 16:56 08/21/16 18:04 Zofran Injection IVPUSH 08/21/16 16:57 4 mg ONCE ONE Administration *DC/Admit/Observation/Transfer Diagnosis at time of Disposition: Acute abdominal pain Left ankle pain Qualifiers: Chronicity: unspecified Qualified Code(s): M25.572 - Pain in left ankle and joints of left foot - Discharge Dispostion Disposition: HOME Condition at time of disposition: Stable Admit: No - Referrals Referrals: Stanley Sifuentes MD [Primary Care Provider] - - Patient Instructions Printed Discharge Instructions: DI for Abdominal Pain-Adult Additional Instructions: Please continue all medications as prescribed already. Return if any problems. - Post Discharge Activity
--- NOTE | 2016-08-22 11:34 | EKG ---
Test Reason : Blood Pressure : / mmHG Vent. Rate : 084 BPM Atrial Rate : 084 BPM P-R Int : 142 ms QRS Dur : 152 ms QT Int : 450 ms P-R-T Axes : -09 204 072 degrees QTc Int : 531 ms Atrial-sensed ventricular-paced rhythm Biventricular pacemaker detected ABNORMAL ECG WHEN COMPARED WITH ECG OF 13-AUG-2016 19:54, VENT. RATE HAS INCREASED BY 11 BPM Confirmed by DEEDEE LYONS, GWEN ([id number]) on 08/22/2016 11:34:14 AM Referred By: Confirmed By:GWEN MARK MD
== END 2016-08-21 21:39 | disposition home or self-care (01) ==
LOC: JER 15:21
PROC: 3E033NZ Introduction of Analgesics, Hypnotics, Sedatives into Peripheral Vein, Percutaneous Approach (ICD-10-PCS; principal; 2016-08-21)
PROC: 3E033GC Introduction of Other Therapeutic Substance into Peripheral Vein, Percutaneous Approach (ICD-10-PCS; 2016-08-21)
DX: R10.0 Acute abdomen (principal); M25.572 Pain in left ankle and joints of left foot; I10 Essential (primary) hypertension; E11.9 Type 2 diabetes mellitus without complications; Z79.4 Long term (current) use of insulin; Z79.84 Long term (current) use of oral hypoglycemic drugs; E78.00 Pure hypercholesterolemia, unspecified; K57.20 Diverticulitis of large intestine with perforation and abscess without bleeding; Z95.810 Presence of automatic (implantable) cardiac defibrillator
CPT/HCPCS: 36415; 73610-TC-LT; 73630-TC-LT; 80053; 82150; 83690; 85025; 93005; 93010; 96374; 96375; 99283-25